=== PATIENT | female | born 1995 | race Hispanic/Latino ===

== ENCOUNTER 2018-07-13 10:24 | Outpatient (CLI) | payer OTHER ==
--- NOTE | 2018-07-13 13:49 | XRay Report ---
CERVICAL SPINE SERIES THREE VIEWS: 07/13/18 10:24:00 CLINICAL: Disability exam. FINDINGS: Exaggerated cervical lordosis. Normal vertebral body height, alignment and disk spaces. No fracture or subluxation. Normal odontoid and C1. Normal airway and soft tissues. IMPRESSION: Normal study.
--- NOTE | 2018-07-14 01:08 | XRay Report ---
PROCEDURE: XR SPINE LUMBOSACRAL 2-3V TECHNIQUE: 3 views of lumbar spine. HISTORY: TYPE 1 DIABETES, DEAF IN RIGHT EAR, SEIZURE AND BIPOLAR DISORDER COMPARISONS: None available. FINDINGS: Subtle convex left lumbar curvature. Vertebral body heights are maintained and there is no subluxatio n. No significant degenerative change of the the lumbosacral spine or sacroiliac joints. IMPRESSION: No acute osseous abnormality significant degenerative change of the lumbar spine. This document is electronically signed by Steven Small DO., Jul 14 2018 01:06:13 AM ET
--- NOTE | 2018-07-14 01:09 | XRay Report ---
PROCEDURE: XR KNEE BILAT 1-2V TECHNIQUE: AP and lateral projections of bilateral knees. HISTORY: TYPE 1 DIABETES, DEAF IN RIGHT EAR, SEIZURE AND BIPOLAR DISORDER COMPARISONS: None available FINDINGS: Osseous mineralization is normal. There is no acute osseous abnormality. No significant degenerative change. No joint effusion or ossified intra-articular body. IMPRESSION: 1. No acute osseous abnormality 2. No significant degenerative change or knee joint effusion. This document is electronically signed by Steven Small DO., Jul 14 2018 01:07:46 AM ET
== END 2018-07-13 10:25 | disposition home or self-care (01) ==
LOC: XRAY 10:24
PROVIDERS: ATTEND Internal Medicine
DX: E10.9 Type 1 diabetes mellitus without complications (principal); H91.91 Unspecified hearing loss, right ear; R56.9 Unspecified convulsions; F31.9 Bipolar disorder, unspecified
CPT/HCPCS: 72040; 72100